=== PATIENT | female | born 1945 | race Caucasian/White ===

== ENCOUNTER 2017-07-29 09:23 | Inpatient (IN) | payer MEDICARE, OTHER ==
--- NOTE | 2017-07-23 08:54 | PREOPHP ---
DATE OF ADMISSION: 07/29/2017 The patient to have surgery with Eligio Orlando MD on 07/29/2017. CONSULTATION REQUESTED BY: Eligio Orlando MD for medical evaluation and clearance of a 71-year-old woman about to undergo surgery. Thank you, Dr. Orlando for participating and allowing us participate in the care our patient. The patient is a 71-year-old woman who has had long-standing history of cervical spine issues and had a prior cervical spine fusion at a different level, is currently being admitted for further surgery on different levels. In terms of her past surgical history, other than the aforementioned cervical spine fusion, had a splenectomy done for ITP, had eye surgery, both right and left eye, had a D and C, and had some sinus surgeries done in the past.. Other than that, she has been relatively stable. Of note, she is being treated for adrenal insufficiency as well as Crohn's disease. MEDICATIONS: She is currently taking the following medications: 1. Trazodone 100 mg at bedtime. 2. Celebrex 200 mg a day, which she has discontinued. 3. Hydrocortisone 10 mg daily. 4. Lexapro 5 mg a day. 5. Estrogen patch 0.5 mcg. 6. Progesterone 100 mg daily. 7. Entocort 6 mg 2 times a day. 8. Pentasa 250 mg 3 times a day. ALLERGIES: SHE IS NOT ALLERGIC TO ANY MEDICATIONS. PAST MEDICAL HISTORY: She has also not had any fractures and other than her hospitalization for her ITP and pregnancies has been relatively healthy. As mentioned above is being treated for adrenal insufficiency.and Crohn's disease. SOCIAL HISTORY: The patient is . Has 2 daughters and 5 grandchildren. She quit smoking several years back. Alcohol socially. Does drink coffee. Usually has no difficulty sleeping at night. FAMILY HISTORY: Both parents are . Father at age 83. Mother age 90, both of old age. Mother did have liver cancer. Two siblings are in good health. There is; however, a family history of diabetes, heart, cancer, hypertension, and stroke. REVIEW OF SYSTEMS: HEENT: Denies any significant headaches. CARDIORESPIRATORY: Denies any chest pain or shortness of breath. At this point, had occasional shortness of breath while she was smoking. GASTROINTESTINAL: Has signs and symptoms of Crohn's disease. Currently quiescent. GENITOURINARY: No urgency frequency. GYNECOLOGICAL: Post menopause. Up-to-date with her suit maker. MUSCULOSKELETAL: Positive for neck pain. NEUROPSYCHIATRIC: Unremarkable general health as above. PHYSICAL EXAMINATION: VITAL SIGNS: Patient's blood pressure was 130/66, pulse was 72 and regular, respirations were 18. Temperature was 98.1, height 5 feet, 4 inches, weight 118 pounds. GENERAL: The patient was noted to be a well-developed, well- nourished female, alert and cooperative, in no apparent acute distress. Oriented to time, place, and person. HEENT: Head was atraumatic. The eyes pupils were equal, reactive to light and accommodation. Fundi were benign. Tympanic membranes were unremarkable. Nose was negative. Mouth was unremarkable. Fair oral hygiene was present. NECK: Supple without any rigidity. Trachea was midline. Thyroid was within normal limits. Neck veins were flat. Carotid pulses were equal. No bruits were heard. Scar from prior anterior fusion was noted. BACK: Exam was unremarkable. CHEST: Chest was symmetrical. BREAST AND AXILLARY: Exam did not reveal any masses. LUNGS: Clear to percussion and auscultation. HEART: PMI is 5th intercostal space at the midclavicular line. Regular sinus rhythm was noted. No significant murmurs, rubs, or gallops being elicited. ABDOMEN: Soft. Good bowel sounds were noted. Scars from prior surgeries were noted. No significant organomegaly, masses or tenderness. GENITALIA: Normal female external genitalia. PELVIC AND RECTAL: Per suit maker, up-to-date. EXTREMITIES: Did not reveal any clubbing, edema, or cyanosis. Peripheral pulses were physiologic. SKIN: Moist and warm without any eruptions. No gross lymphadenopathy was noted. NEUROLOGIC: Exam was grossly intact. IMPRESSION: 1. Cervical disc disease status post prior anterior cervical spine fusion. 2. Adrenal insufficiency, steroid-dependent. 3. Menopausal syndrome on hormone replacement therapy. 4. Crohn's disease. 5. Stable health. DISCUSSION: Review of laboratory and other data revealed the following. Patient's chemistry revealed normal electrolytes. Random glucose was 109. BUN, creatinine, liver function tests, calcium, phosphorus, serum iron CBC, sed rate, UA, and PTT were normal. Patient's white count is slightly elevated secondary to steroid therapy. The patient's EKG done less than 2 months ago was normal. The patient's chest x-ray done as part of preop exam was within normal limits as well. Dr. Orlando, I see no contraindications to the patient undergoing current proposed surgery under the desired form of anesthesia. However, patient should be loaded with steroids, hydrocortisone or Medrol pre, intra and postoperatively at a higher dose than what she currently takes and consideration also needs to be given to the fact that the patient is a former smoker. However, despite all of those, she has been doing relatively well and I feel she is a suitable surgical candidate at this particular point in time. We will be more than happy to follow her with you during her stay at [facility]. Thank you again Dr. Orlando, for participating and allowing us participate in care of our patient. Dictated By: Deric Soto MD /carlos/jill /Document#: [id number] JENNIFER
[2017-07-28 11:05] VITALS: Ht 160 cm; Wt 53.0 kg
[~2017-07-29] VITALS: Ht 160 cm; Wt 53.0 kg
[2017-07-29] VITALS (24 sets, daily range): BP systolic 112–154; BP diastolic 52–72; PULSE 73–96; RESP 16–23
[~2017-07-29 09:23] MED LIST: ROCURONIUM 50 MG INJ ONE
[2017-07-29] MEDS ORDERED: ESCI10TA PO (10:10)
[2017-07-29] MEDS ORDERED: TRAZ50TA18 PO (10:10)
[2017-07-29] MEDS ORDERED: PROG100C5 PO (10:11)
[2017-07-29] MEDS ORDERED: ESTR0.5T PO (10:12)
[2017-07-29] MEDS ORDERED: CELE200C PO (10:13)
[2017-07-29] MEDS ORDERED: BUDE3CAP15 PO (10:15)
[2017-07-29] MEDS ORDERED: HYDR5TAB PO (10:15)
[2017-07-29] MEDS ORDERED: MES250 PO (10:16)
[2017-07-29] MEDS ORDERED: POLYMYXIN/BACITRACIN 1L IRRIG ONE (10:23)
[2017-07-29] MEDS ORDERED: SURGIFOAM POWDER 1 GM KIT ONE (10:23)
[2017-07-29] MEDS ORDERED: THROMBIN 5000 UNIT VIAL ONE (10:23)
[2017-07-29] MEDS ORDERED: BUPIVACAINE 0.5%/EPI (SDV) 30 ML INJ ONE (10:23)
[2017-07-29] MEDS ORDERED: GELATIN SIZE 100 SPONGE ONE (10:23)
--- NOTE | 2017-07-29 11:02 | HPN ---
Date/Time of Note Date/Time of Note DATE: 07/29/17 TIME: 11:02 Interval H&P Admission Note Pt. seen H&P reviewed: No system changes FERNANDO OATES PA-C Jul 29, 2017 11:02
[2017-07-29] MEDS ORDERED: HYDROmorphONE (0.2 MG/ML) 10ML SYG IV PRN ×2 (11:30)
[2017-07-29] MEDS ORDERED: FENTAnyl 50 MCG/ML VIAL IV PRN (11:30)
[2017-07-29] MEDS ORDERED: LABETALOL HCL 20MG INJ IV PRN (11:30)
[2017-07-29] MEDS ORDERED: ZOLPIDEM 5 MG TAB PO PRN (11:30)
[2017-07-29] MEDS ORDERED: METOCLOPRAMIDE 10 MG INJ IV PRN (11:30)
[2017-07-29] MEDS ORDERED: CEPASTAT LOZENGE MT PRN (11:30)
[2017-07-29] MEDS ORDERED: DIPHENHYDRAMINE 50 MG INJ IV PRN ×2 (11:30→15:00)
[2017-07-29] MEDS ORDERED: NALOXONE (0.4 MG/ML) INJ IV PRN (11:30)
[2017-07-29] MEDS ORDERED: HYDROmorphONE 1 MG/ML SYG IV PRN (11:30)
[2017-07-29] MEDS ORDERED: hydrALAzine 20 MG INJ IV PRN (11:30)
[2017-07-29] MEDS ORDERED: MEPERIDINE 25 MG INJ IV PRN (11:30)
[2017-07-29] MEDS ORDERED: HYDROmorphONE 0.2 MG/ML PCA IV SCH (11:30)
[2017-07-29] MEDS ORDERED: ONDANSETRON 4 MG INJ IV PRN (11:30)
[2017-07-29] MEDS ORDERED: MIDAZOLAM 1 MG/ML 2 ML INJ ONE (11:32)
[2017-07-29] MEDS ORDERED: morphine 10 MG INJ ONE (12:37)
[2017-07-29] MEDS ORDERED: GLYCOPYRROLATE 0.4 MG INJ ONE (14:09)
[2017-07-29] MEDS ORDERED: LIDOCAINE 2% (SDV) 5 ML INJ ONE (14:09)
[2017-07-29] MEDS ORDERED: NEOSTIGMINE 3 MG/3 ML SYRINGE ONE (14:09)
[2017-07-29] MEDS ORDERED: ETOMIDATE 20 MG INJ ONE (14:09)
[2017-07-29] MEDS ORDERED: CEFAZOLIN 1 GM INJ ONE (14:09)
[2017-07-29] MEDS ORDERED: ROCURONIUM 50 MG INJ ONE (14:09)
[2017-07-29] MEDS ORDERED: ONDANSETRON 4 MG INJ ONE (14:12)
[2017-07-29] MEDS ORDERED: METOCLOPRAMIDE 10 MG INJ ONE (14:12)
--- NOTE | 2017-07-29 14:15 | SIPON ---
Date/Time of Note Date/Time of Note DATE: 07/29/17 TIME: 14:15 Operative Report Preoperative Diagnosis Cervical stenosis Postoperative Diagnosis Cervical stenosis Operation/Procedure Performed Cervical fusion Surgeon see signature line commercial escrow assistant Karina Cabrera Anesthesia: general Estimated blood loss: 10 - 50 ml's Transfusion Required none Specimen Disc Grafts/Implants Cervical plate and cage Complications none NOELLE MATOS MD Jul 29, 2017 14:15
[2017-07-29] MEDS ORDERED: BISACODYL 10 MG SUPP PR PRN (15:00)
[2017-07-29] MEDS ORDERED: CARISOPRODOL 350 MG TAB PO PRN (15:00)
[2017-07-29] MEDS ORDERED: AL HYDROX/MG HYDROX/SIMETH 30 ML CUP PO PRN (15:00)
--- NOTE | 2017-07-29 15:40 | OPR ---
DATE OF OPERATION: 07/29/2017 SURGEON: Eligio Orlando MD FIRE BOAT ENGINEER: Karina Cabrera PA-C. ANESTHESIOLOGIST: Hans Barraza MD. PREOPERATIVE DIAGNOSES: 1. Previous C6-7 non-instrumented fusion. 2. Adjacent segment disease and stenosis at C4-5 and C5-6 with radiculopathy and disc disease. POSTOPERATIVE DIAGNOSES: 1. Previous C6-7 non-instrumented fusion. 2. Adjacent segment disease and stenosis at C4-5 and C5-6 with radiculopathy and disc disease. OPERATION PERFORMED: 1. Anterior cervical discectomy and spinal cord decompression at C4-5, C5-6. 2. Anterior cervical fusion at C4-5, C5-6. 3. Placement of intervertebral biomechanical device at C4-5, C5- 6. 4. Anterior hardware placement at C4-5, C5-6. 5. Use of C-arm flash with interpretation without radiologist present. 6. Allograft. 7. Use of operative microscope. 8. Intraoperative nerve monitoring (1.5 hours). IMPLANTS: 1. Neuro structure trans TRA and ZOIE cervical plate with 12 mm screws. 2. Neuro structure Cavetto 0.5 mm x 14 x 16 mm cage at C5-6, and 4 mm x 14 x 16 mm cage at C4-5. 3. Fiber graft matrix. NEED FOR HAND STRAIGHTENER: assistant professor of forestry was required in order to retract the neurovascular elements. FINDINGS: Neuro monitoring throughout the case revealed right C5 amplitude down 40 percent, right C6 amplitude down 30 percent, left C7 ampliatude down 30 percent. At the end of the case, nerve signal returned to normal. The patient had disc disease stenosis at C4-5 and C5-6 with a fusion at C6-7 from her previous surgery. ESTIMATED BLOOD LOSS: 30 mL. DRAINS: None. SPECIMENS: Disc. COMPLICATIONS: None. ANESTHESIA: General. INDICATIONS: This is a 71-year-old female, who previously had undergone fusion surgery at C6-7. She developed adjacent segment disease at C4-5 and C5-6. She had mild left foraminal stenosis at C3-4, which I elected to leave alone at this time. This was discussed with the patient preoperatively. The patient had made multiple attempts to quit smoking and had cut down prior to the surgery. She understood the risks of pseudoarthrosis with continued smoking. OPERATIVE PROCEDURE: The patient was identified in the preoperative holding area, given Ancef antibiotics in the operating room, where she was successfully placed under general anesthesia. Neuro monitor leads were placed, sequential devices were applied. Neural monitor was utilized in the procedure for 1.5 hours to include SSEP, MEP, and EMG. This was performed by [facility]. Start time was 12:30, closure time was 2 p.m. The patient was placed on the operating room table in supine position. Towel rolls were placed. Arms were tucked to the side. Neck was extended. Neck was prepped draped usual sterile fashion. A left-sided approach to the neck was made. Skin was incised. I then identified the interval and the sternocleidomastoid and strap muscles. I identified the anterior spine. I placed a bent spinal needle and took a lateral film to confirm the correct levels. Next, subperiosteal dissected longus coli musculature. Self-retaining retractors were placed. The endotracheal cuff was deflated. I took a rongeur and removed the large anterior osteophytes at C4-5 and C5-6. Next, I performed radical diskectomies at C4-5 and C5-6 using curettes, Kerrison punches, pituitary rongeurs and a high-speed bur. I decompressed the spinal cord. The neural foramina bilaterally at C4-5 and C5- 6. I next placed various trials and chose the appropriate graphite. I took the peek cage within which I placed allograft and I impacted the intervertebral biomechanical device into the C4-5 level and another one at the C5-6 to complete anterior fusion at both levels. Once this was done, I took the anterior plate spanning from C4, C6 with 12 mm screws. I locked it into the screws. Once this was done, all nerves were normal. I took final AP and lateral images that I placed in the hardware in alignment of the spine. The microscope at this point, taken off the field. Wound was irrigated. Hemostasis was achieved with Surgifoam. I then closed the platysma with a running #2-0 Vicryl stitch. I then closed the subcutaneous tissue with #3-0 Vicryl stitch. Dermabond was then applied. The patient was then awakened from anesthesia, and taken recovery in stable condition. Lap, sponge, and counts correct x2. There were no apparent complications during the surgery. The patient will be admitted to orthopedic webb for routine postoperative care to include pain control, antibiotics and physical therapy. Dictated By: Eligio Orlando MD /carlos/layne /Document#: [id number]
[2017-07-29] MEDS: CEFAZOLIN 1 GM/50 ML (PMX) 50 ML IVPB SCH ×2 (16:12→23:18)
[2017-07-29] MEDS: D5W-0.45 NACL + KCL 20 MEQ 1,000 ML IV SCH (16:12)
[2017-07-29] MEDS: ONDANSETRON 4 MG INJ IV PRN (16:40)
--- NOTE | 2017-07-29 17:21 | CONS ---
Date/Time of Note Date/Time of Note DATE: 07/29/17 TIME: 17:18 Assessment/Plan Assessment/Plan Problems: (1) Status post cervical spinal fusion Onset Date: ~ 07/29/2017 Status: Acute Comment: He is immediately postop. She is having nausea which may be from the anesthetic agents were more likely from the narcotic analgesia. If this persists we will change the narcotic analgesia. Expectation for good postop recovery and rehabilitation (2) Crohns disease Status: Chronic Comment: She has been stable reportedly. We will continue her on her Crohn's disease medications. Qualifiers: Gastrointestinal tract location: unspecified location Digestive disease complication type: unspecified complication Qualified Code: K50.919 - Crohn' s disease with complication, unspecified gastrointestinal tract location (3) Iatrogenic adrenal insufficiency Status: Chronic Comment: In the immediate postoperative period stress dose steroids which will taper rapidly to replacement dosing. (4) History of ITP Status: Chronic Comment: Noted and presently quiescent Consultation Date/Type/Reason Admit Date/Time Jul 29, 2017 at 09:23 Initial Consult Date July 29, 2017 Type of Consultation: Internal medicine-endocrinolog Reason for Consultation Postoperative cervical spine fusion; iatrogenic adrenal insufficiency; Crohn's disease Referring Provider: NOELLE MATOS MD 24 HR Interval Summary Free Text/Dictation Heladio 71-year-old female in bed. She reports she has a sore throat and nausea at this time. Denies any chest pain shortness of breath etc. Constitutional: no complaints Detailed Summary ENT: no complaints Respiratory: no complaints Cardiovascular: no complaints Gastrointestinal: nausea Genitourinary: no complaints Musculoskeletal: no complaints Exam/Review of Systems Vital Signs Vitals Vital Signs Date Time Temp Pulse Resp B/P Pulse Ox O2 Delivery O2 Flow Rate FiO2 07/29/17 15:23 92 20 147/58 99 Nasal Cannula 2.0 07/29/17 14:32 98.0 Exam Constitutional: alert, oriented Eyes: EOMI, PERRL, nl conjunctiva, nl lids, nl sclera Neck: other (Your wound dressing) Respiratory: clear to auscultation, normal air movement Cardiovascular: nl pulses, regular rate and rhythm Gastrointestinal: nl liver, spleen, non-tender, soft Medications Medications Current Medications Potassium Chloride/Dextrose/ Sod Cl (D5-1/2ns + KCl 20 Meq) 1,000 ml @ 100 mls/ hr Q10H IV Last administered on 07/29/17 16:12; Admin Dose 100 MLS/HR; Start 07/29/17 at 15:00 Acetaminophen/ Hydrocodone Bitart ([place] (10/325)) 1 tab Q4H PRN PO PAIN LEVEL 1-5; Start 07/30/17 at 10:00 Acetaminophen/ Hydrocodone Bitart ([place] (10/325)) 2 tab Q4H PRN PO PAIN LEVEL 6-10; Start 07/30/17 at 10:00 Hydromorphone HCl 0.2 mg 0.2 mg Q1H PRN IV BREAKTHROUGH PAIN; Start 07/29/17 at 11:30 Cefazolin Sodium (Ancef 1 Gm/50 ml (Pmx)) 50 ml @ 100 mls/hr Q8H IVPB Last administered on 07/29/17 16:12; Admin Dose 100 MLS/HR; Start 07/29/17 at 15:00 ; Stop 07/30/17 at 07:29 Ondansetron HCl (Zofran Inj) 4 mg Q6H PRN IV NAUSEA AND/OR VOMITING Last administered on 07/29/17 16:40; Admin Dose 4 MG; Start 07/29/17 at 11:30 Bisacodyl (Dulcolax Supp) 10 mg DAILY PRN [place] CONSTIPATION; Start 07/29/17 at 15 :00 Docusate Sodium (Colace) 100 mg BID PO ; Start 07/29/17 at 21:00 Al Hydrox/Mg Hydrox/Simethicone (Mag-Al Plus) 15 ml Q6H PRN PO CONSTIPATION/ DYSPEPSIA; Start 07/29/17 at 15:00 Acetaminophen (Tylenol Tab) 650 mg Q4H PRN PO LAK[place]ANI OR TEMP GREATER THAN 101.3F; Start 07/29/17 at 15:00 Carisoprodol (Soma) 350 mg TID PRN PO MUSCLE SPASMS; Start 07/29/17 at 15:00 Phenol (Cepastat Lozenge) 1 lozenge PRN PRN [place] SORE THROAT; Start 07/29/17 at 11:30 Diphenhydramine HCl (Benadryl) 25 mg Q6H PRN IV ITCHING; Start 07/29/17 at 15: 00 Naloxone HCl (Narcan) 0.2 mg Q2M PRN IV RR 8 BREATHS/MIN OR LESS; Start at 11:30 Hydromorphone HCl (Dilaudid [place]) [place] to be started in PACU Q4PCA IV Last administered on 07/29/17t 14:37; Admin Dose 6 MG; Start 07/29/17 at 11:30; Status Future Hold Miscellaneous Information 1. Hold [place] BAIL[place] at 1,000... [place] BAIL[place] IV ; Start 07/29/17 at 11: 30 Acetaminophen/ Hydrocodone Bitart ([place] (10325)) 2 tab ONCE@0930 PO ; Start 07/30/17 at 09:30; Stop 07/30/17 at 09:31 Influenza Virus Vaccine (Fluzone) 0.5 ml ONCE ONCE IM* ; Start 07/31/17 at 09:00 ; Stop 07/31/17 at 09:01 GERALD YAN MD Jul 29, 2017 17:21
--- NOTE | 2017-07-29 17:42 | RADRPT ---
PROCEDURE: Intraoperative imaging of the cervical spine with fluoroscopy. CLINICAL INDICATION: Neck pain. Intraoperative. TECHNIQUE: 8 images of the cervical spine were obtained in the operating room with an image intens ifier. No radiologist was in attendance. Fluoroscopy time is 14 seconds. COMPARISON: No prior study is available for comparison. FINDINGS: Surgical instruments are noted overlying the cervical spine. There is anterior fusion with plate an d screws at C4 - C5 - C6. Intervertebral cages are present at C4-5 and C5-6. IMPRESSION: 1. Intraoperative imaging of the cervical spine. RPTAT: QQ .Sky Yost MD, Date Time Electronically viewed and signed by .Sky Yost MD, on 07/29/2017 17:42 .R/
[2017-07-29] MEDS: HYDROCORTISONE 100 MG INJ IV SCH ×2 (20:30→22:00)
[2017-07-29] MEDS: DOCUSATE SODIUM 100 MG CAP PO SCH (21:57)
[2017-07-29] MEDS: traZODone 50 MG TAB PO SCH (21:57)
[2017-07-29] MEDS: PROGESTERONE 100 MG CAP PO SCH (21:57)
[2017-07-30 00:10] VITALS: BP 124/59; RESP 20
[2017-07-30] MEDS: D5W-0.45 NACL + KCL 20 MEQ 1,000 ML IV SCH ×4 (01:00→21:01)
[2017-07-30] MEDS: ONDANSETRON 4 MG INJ IV PRN ×4 (01:46→21:02)
[2017-07-30 02:18] VITALS: BP 125/58; RESP 20
[2017-07-30] MEDS: HYDROCORTISONE 100 MG INJ IV SCH ×2 (04:45→13:33)
[2017-07-30 05:25] LABS: ABNORMAL IP MESSAGE 1; BASOPHILS % 0.1 % (0.0-2.0); HEMATOCRIT 37.1 % (37.0-47.0); HEMOGLOBIN 12.2 g/dl (12.0-16.0); LYMPHOCYTES # 1.7 10^3/ul (0.8-2.9); LYMPHOCYTES % 7.9 % (15.0-51.0); MEAN CORPUSCULAR HGB CONC 32.9 g/dl (32.0-37.0); MEAN CORPUSCULAR VOLUME 97.4 fl (82.0-101.0); MEAN PLATELET VOLUME 12.4 fl (7.4-10.4); MONOCYTE # 2.2 10^3/ul (0.3-0.9); NEUTROPHIL # 17.9 10^3/ul (1.6-7.5); NEUTROPHILS % 81.5 % (39.0-77.0); PLATELET COUNT 196 10^3/UL (140-415); RED BLOOD COUNT 3.81 10^6/ul (4.20-5.40); RED CELL DISTRIBUTION WIDTH 14.8 % (11.5-14.5); WHITE BLOOD COUNT 21.9 10^3/ul (4.8-10.8)
[2017-07-30 05:56] LABS: CALCIUM 8.2 mg/dl (8.4-10.2); CREATININE 0.49 mg/dl (0.44-1.00); MAGNESIUM 1.6 mg/dl (1.7-2.5)
[2017-07-30 06:14] LABS: POSITIVE DIFF @See below
[2017-07-30] MEDS: CEFAZOLIN 1 GM/50 ML (PMX) 50 ML IVPB SCH (06:42)
[2017-07-30 08:01] VITALS: BP 127/67; RESP 18
[2017-07-30] MEDS ORDERED: HYDROCODONE/APAP (10/325) TAB PO SCH (09:30)
[2017-07-30] MEDS: MESALAMINE (SR) 250 MG CAP PO SCH (09:57)
[2017-07-30] MEDS: ESTRADIOL 1 MG TAB PO SCH (09:57)
[2017-07-30] MEDS: DOCUSATE SODIUM 100 MG CAP PO SCH ×2 (09:57→21:02)
[2017-07-30] MEDS: ESCITALOPRAM 10 MG TAB PO SCH (09:57)
[2017-07-30] MEDS: BUDESONIDE (EC) 3 MG CAP PO SCH (09:57)
[2017-07-30] MEDS ORDERED: HYDROCODONE/APAP (10/325) TAB PO PRN ×2 (10:00)
--- NOTE | 2017-07-30 10:44 | PN ---
Date/Time of Note Date/Time of Note DATE: 07/30/17 TIME: 10:44 Assessment/Plan Lines/Catheters IV Catheter Type (from Nrsg): Peripheral IV Hurtado in Place (from Nrsg): Yes Assessment/Plan Assessment/Plan Postop day 1 status post cervical fusion. We will DC CHILI MAKER and Hurtado. She will work with physical therapy. Subjective 24 Hr Interval Summary c/o pain Exam/Review of Systems Vital Signs Vitals Vital Signs Date Time Temp Pulse Resp B/P Pulse Ox O2 Delivery O2 Flow Rate FiO2 07/30/17 08:01 98.2 83 18 127/67 98 07/29/17 20:00 2.0 07/29/17 19:45 Room Air Intake and Output 07/29/17 07/29/17 07/30/17 15:00 23:00 07:00 Intake Total 1400 ml 150 ml 1900 ml Output Total 600 ml 300 ml 650 ml Balance 800 ml -150 ml 1250 ml Exam Free Text/Dictation Neurovascularly intact Results Result Diagram: 07/30/17 0435 07/30/17 0435 NOELLE MATOS MD Jul 30, 2017 10:44
[2017-07-30 14:18] VITALS: BP 128/70; RESP 18
[2017-07-30] MEDS: ACETAMINOPHEN 325 MG TAB PO PRN (18:47)
[2017-07-30] MEDS: traZODone 50 MG TAB PO SCH (21:02)
[2017-07-30] MEDS: PROGESTERONE 100 MG CAP PO SCH (21:02)
[2017-07-30] MEDS: HYDROCORTISONE 5 MG TAB PO SCH (21:02)
[2017-07-30 21:40] VITALS: BP 131/62; RESP 20
[2017-07-31 02:10] VITALS: BP 152/70; RESP 20
[2017-07-31] MEDS: D5W-0.45 NACL + KCL 20 MEQ 1,000 ML IV SCH (06:51)
[2017-07-31] MEDS: ACETAMINOPHEN 325 MG TAB PO PRN (06:59)
[2017-07-31 07:50] VITALS: BP 148/67; RESP 20
[2017-07-31] MEDS: ESCITALOPRAM 10 MG TAB PO SCH (08:34)
[2017-07-31] MEDS: MESALAMINE (SR) 250 MG CAP PO SCH (08:35)
[2017-07-31] MEDS: HYDROCORTISONE 5 MG TAB PO SCH (08:35)
[2017-07-31] MEDS: ESTRADIOL 1 MG TAB PO SCH (08:35)
[2017-07-31] MEDS: DOCUSATE SODIUM 100 MG CAP PO SCH (08:35)
[2017-07-31] MEDS: BUDESONIDE (EC) 3 MG CAP PO SCH (08:36)
[2017-07-31] MEDS: ONDANSETRON 4 MG INJ IV PRN (08:40)
[2017-07-31] MEDS ORDERED: INFLUENZA VIRUS VACCINE 0.5 ML (DISPENSING) IM* ONE (09:00)
--- NOTE | 2017-07-31 13:25 | CONS ---
Date/Time of Note Date/Time of Note DATE: 07/31/17 TIME: 13:18 Assessment/Plan Assessment/Plan Problems: (1) Status post cervical spinal fusion Onset Date: ~ 07/29/2017 Status: Acute Comment: Stable post op, and ready for discharge (2) Iatrogenic adrenal insufficiency Status: Chronic Comment: stable and not a complication (3) History of ITP Status: Chronic Comment: inactive Consultation Date/Type/Reason Admit Date/Time Jul 29, 2017 at 09:23 Initial Consult Date July 29, 2017 Type of Consultation: Internal medicine-endocrinolog Reason for Consultation Iadrenal insufficiency Referring Provider: NOELLE MATOS MD 24 HR Interval Summary Constitutional: no complaints Detailed Summary Neurologic: other (improved) Exam/Review of Systems Vital Signs Vitals Vital Signs Date Time Temp Pulse Resp B/P Pulse Ox O2 Delivery O2 Flow Rate FiO2 07/31/17 07:50 99.5 85 20 148/67 92 07/30/17 20:00 2.0 07/29/17 19:45 Room Air Intake and Output 07/30/17 07/30/17 07/31/17 15:00 23:00 07:00 Intake Total 50 ml 1200 ml 900 ml Output Total 2200 ml Balance 50 ml -1000 ml 900 ml Exam Constitutional: alert, oriented Neck: non-tender, supple Respiratory: clear to auscultation, normal air movement Results Result Diagram: 07/30/17 0435 07/30/17 0435 Medications Medications Current Medications Potassium Chloride/Dextrose/ Sod Cl (D5-1/2ns + KCl 20 Meq) 1,000 ml @ 100 mls/ hr Q10H IV Last administered on 07/30/17t 21:01; Admin Dose 100 MLS/HR; Start 07/29/17 at 15:00 Acetaminophen/ Hydrocodone Bitart ([place] (10/325)) 1 tab Q4H PRN PO PAIN LEVEL 1-5; Start 07/30/17 at 10:00 Acetaminophen/ Hydrocodone Bitart ([place] (10/325)) 2 tab Q4H PRN PO PAIN LEVEL 6-10; Start 07/30/17 at 10:00 Hydromorphone HCl (Dilaudid) 0.2 mg Q1H PRN IV BREAKTHROUGH PAIN; Start at 11:30 Ondansetron HCl (Zofran Inj) 4 mg Q6H PRN IV NAUSEA AND/OR VOMITING Last administered on 07/31/17 08:40; Admin Dose 4 MG; Start 07/29/17 at 11:30 Bisacodyl (Dulcolax Supp) 10 mg DAILY PRN [place] CONSTIPATION; Start 07/29/17 at 15 :00 Docusate Sodium (Colace) 100 mg BID PO Last administered on 07/31/17 08:35; Admin Dose 100 MG; Start 07/29/17 at 21:00 Al Hydrox/Mg Hydrox/Simethicone (Mag-Al Plus) 15 ml Q6H PRN PO CONSTIPATION/ DYSPEPSIA; Start 07/29/17 at 15:00 Acetaminophen (Tylenol Tab) 650 mg Q4H PRN PO [place]HANI OR TEMP GREATER THAN 101.3F Last administered on 07/31/17 06:59; Admin Dose 650 MG; Start 07/29/17 at 15:00 Carisoprodol (Soma) 350 mg TID PRN PO MUSCLE SPASMS; Start 07/29/17 at 15:00 Phenol (Cepastat Lozenge) 1 lozenge PRN PRN [place] SORE THROAT; Start 07/29/17 at 11:30 Diphenhydramine HCl (Benadryl) 25 mg Q6H PRN IV ITCHING; Start 07/29/17 at 15: 00 Naloxone HCl (Narcan) 0.2 mg Q2M PRN IV RR 8 BREATHS/MIN OR LESS; Start at 11:30 Hydromorphone HCl (Dilaudid LOADER DEMOLDER) LOADER DEMOLDER to be started in PACU Q4PCA IV Last administered on 07/29/17 14:37; Admin Dose 6 MG; Start 07/29/17 at 11:30; Status Future Hold Miscellaneous Information 1. Hold LOADER DEMOLDER at 1,000... LOADER DEMOLDER IV ; Start 07/29/17 at 11: 30 Budesonide (Entocort Ec) 6 mg DAILY PO Last administered on 07/31/17 08:36; Admin Dose 6 MG; Start 07/30/17 at 09:00 Escitalopram Oxalate (Lexapro) 10 mg DAILY PO Last administered on 07/31/17 08 :34; Admin Dose 10 MG; Start 07/30/17 at 09:00 Mesalamine (Pentasa) 750 mg DAILY PO Last administered on 07/31/17 08:35; Admin Dose 750 MG; Start 07/30/17 at 09:00 Progesterone (Prometrium) 100 mg HS PO Last administered on 07/30/17 21:02; Admin Dose 100 MG; Start 07/29/17 at 21:00 Trazodone HCl (Desyrel) 50 mg QHS PO Last administered on 07/30/17 21:02; Admin Dose 50 MG; Start 07/29/17 at 21:00 Estradiol (Estrace) 0.5 mg DAILY PO Last administered on 07/31/17 08:35; Admin Dose 0.5 MG; Start 07/30/17 at 09:00 Hydrocortisone (Cortef) 10 mg TID PO Last administered on 07/31/17 08:35; Admin Dose 10 MG; Start 07/30/17 at 21:00 GERALD YAN MD Jul 31, 2017 13:25
[2017-07-31 14:00] VITALS: BP 134/62; RESP 18
[2017-07-31] MEDS ORDERED: HYDROCORTISONE 5 MG TAB PO SCH (21:00)
--- NOTE | 2017-08-01 08:16 | DS ---
DATE OF ADMISSION: 07/29/2017 DATE OF DISCHARGE: 07/31/2017 ADMITTING DIAGNOSIS: Cervical stenosis. DISCHARGE DIAGNOSIS: Cervical stenosis. PROCEDURE: Patient was taken to the operating room on 07/29/2017, underwent ACDF. HOSPITAL COURSE: The patient was admitted to the orthopedic webb after undergoing above procedure. Her postoperative course was uncomplicated. By postoperative day 2, she was deemed stable for disc harge with followup arranged with the undersigned. Dictated By: NOELLE BRENNAN/LORELEI Conf#: [id number] DID#: [id number]
== END 2017-07-31 14:15 | disposition home or self-care (01) | DRG 472 ==
LOC: REC 09:23 → MS1 15:30
PROVIDERS: ADMIT Specialist; ATTEND Specialist
PROC: 0RG20K0 Fusion of 2 or more Cervical Vertebral Joints with Nonautologous Tissue Substitute, Anterior Approach, Anterior Column, Open Approach (ICD-10-PCS; 2017-07-29)
PROC: 0RT30ZZ Resection of Cervical Vertebral Disc, Open Approach (ICD-10-PCS; 2017-07-29)
PROC: 0RG20A0 Fusion of 2 or more Cervical Vertebral Joints with Interbody Fusion Device, Anterior Approach, Anterior Column, Open Approach (ICD-10-PCS; principal; 2017-07-29 11:30)
DX: M50.121 Cervical disc disorder at C4-C5 level with radiculopathy (principal); E27.40 Unspecified adrenocortical insufficiency; K50.90 Crohn's disease, unspecified, without complications; Z79.890 Hormone replacement therapy; Z79.52 Long term (current) use of systemic steroids; Z78.0 Asymptomatic menopausal state; F17.200 Nicotine dependence, unspecified, uncomplicated
CPT/HCPCS: 72052; 80048; 83735; 85025; 86999; 88304; 90686; 97116; 97163; 97530; J0690; J1170; J1720; J2250; J2270; J2405; J2710; J2765; J3010; J3480